=== PATIENT | female | born 1955 | race Caucasian/White ===

== ENCOUNTER 2023-08-27 14:02 | Outpatient (REF) | payer MEDICARE, SELFPAY ==
[2023-08-27 17:32] LABS: ALT 30 U/L (14-59); AST 24 U/L (15-37); Albumin 3.8 g/dL (3.4-5.0); Alkaline Phosphatase 110 U/L (46-116); Anion Gap 4.9 mmol/L (3-11); BUN 18 mg/dL (7-18); Bilirubin, Total 0.3 mg/dL (0.2-1.0); CO2 29.1 mmol/L (21.0-32.0); CREATININE 0.7 mg/dL (0.55-1.02); Calcium 9.3 mg/dL (8.5-10.1); Calculated LDL 110 mg/dL (<100); Chloride 104 mmol/L (98-107); Cholesterol 215 mg/dL (<200); Estimated GFR 94.15 (mL/min/1.73m2); Glucose 115 mg/dL (74-106); HDL Cholesterol 99 mg/dL (40-60); Sodium 138 mmol/L (136-145); TSH (W/Ref FT4) 1.25 uIU/mL (0.36-3.74); Total Protein 7.5 g/dL (6.4-8.2); Triglyceride 34 mg/dL (<150)
== END 2023-08-27 14:03 | disposition home or self-care (01) ==
LOC: NCHCN 14:02
PROVIDERS: Visit Provider Family Medicine
DX: E78.00 Pure hypercholesterolemia, unspecified (principal); F41.8 Other specified anxiety disorders; R53.83 Other fatigue
CPT/HCPCS: 80053; 80061; 84443

== ENCOUNTER 2024-09-06 19:32 | Outpatient (REF) | payer MEDICARE, BC, SELFPAY ==
--- OUTSIDE RECORDS SUMMARY | 2024-09-06 19:35 | XMS_ITS | Encounter Summary ---
Author Organization [facility] Address [address] [place] [address] Care Team Providers Care Banquet Waiter/Waitress Name Role Phone Unavailable Primary Care Provider Unavailabl e Encounter Details Date Type Department Care Team (Late st Contact Info) Description 11/23/2007 Results Only [facility] - Maple conversion [address] [place] [address] Unknown, Provider, Social History Tobacco Use Types Packs/Day Years Used Date Smoking Tobacco: Never Assessed Sex and Gender Information Value Date Recorded Sex Assigned at Not on file Gender Identity Not on file Sexual Orientation Not on file documented as of this encounter Plan of Treatment Not on file documented as of this encounter Procedures Procedure Name Priority Date/Time Associated Diagnosis Comments FOLATE Routine 11/23/2007 14:07 EST VITAMIN B12 Routine 11/23/2007 14:07 EST documented in this encounter Results * FOLATE (11/23/2007 14:07 EST) Folate 17.7 ng/mL [facility] Comment: Deficient: ??Less than 3.4 ng/mL Indeterminate: ??3.4-5.4 ng/mL Normal: ??Greater than 5.4 ng/mL 11/23/2007 14:0 7 EST 11/23/2007 21:50 EST Provider Unknown CHEMISTRY & BLOOD GA S ORDERABLES [facility] [address] [place] [address] * VITAMIN B12 (11/23/2007 14:07 EST) Vitamin B-12 409 250 - 1100 pg/ml [facility] 11/23/2007 14:0 7 EST 11/23/2007 21:50 EST Provider Unknown MD CHEMISTRY & BLOOD GA S ORDERABLES Performing Organization Address City/State/[facility] Co de Phone Number [facility] [address] [place] [address] documented in this encounter Visit Diagnoses Not on filedocumented in this encounter
--- OUTSIDE RECORDS SUMMARY | 2024-09-06 19:35 | XMS_ITS | Encounter Summary ---
Author Organization [facility] Address [address] [place] [address] Care Team Providers Care Visitor Services Representative Name Role Phone Unknown, Provider Primary Care Provider Encounter Details Date Type Department Care Team (Late st Contact Info) Description 08/04/2011 Results Only [facility] - [facility] ([facility] [address] [place] [address] Johanna Leonard MD [facility] [address] [place], [place] [id number] Social History Tobacco Use Types Packs/Day Years Used Date Smoking Tobacco: Never Assessed Sex and Gender Information Value Date Recorded Sex Assigned at Not on file Gender Identity Not on file Sexual Orientation Not on file documented as of this encounter Plan of Treatment Not on file documented as of this encounter Procedures Procedure Name Priority Date/Time Associated Diagnosis Comments PAP TEST- RESULT ONLY Routine 08/04/2011 0:00 EDT documented in this encounter Results * PAP TEST- RESULT ONLY (08/04/2011 0:00 EDT) Pathology Report: CYTOPATHOLOGY REPORT ? Reports generated via electronic interface contain original data; ? however they are lacking the format of the original report. ? Caution should be taken when reading/interpreti ng unformatted reports. ? Name: ? NEGAR PEREZ ? Accession #: ? [id number] ? : ? 1955 (Age: 55) ??F ?Collect Date: ? 08/04/2011 ? Location: ? [facility] ? Receive Date: ? 08/05/2011 ? Provider: ?JOHANNA CODDAIRE MD ? Copy to: ? Specimen/Source: ?Pap Test, Cervix/Endocervix, ThinPrep Imaging System ? with manual evaluation ? Last Menstrual Period: ? Menstrual/Pregnanc y Status: ? Menopausal ? Treatment History: ? Endometrial biopsy: 3 uyears ? SPECIMEN ADEQUACY ? Satisfactory for Evaluation ? - transformation zone component absent ? GENERAL CATEGORIZATION ? Negative for Intraepithelial Lesion or Malignancy ? Document reviewed and electronically signed by: ? Gisselle Josie, [place](ASCP) ? Report Date: ??08/11/2011 11:36 ? End of Report ? [facility] 08/04/2011 08/05/2011 Johanna Leonard MD PATHOLOGY ORDERABLES Performing Organization Address City/State/[facility] Co de Phone Number [facility] [address] [place] [address] documented in this encounter Visit Diagnoses Not on filedocumented in this encounter Care Teams Visitor Services Representative Relationship Specialty Start Date End Date Unknown, Provider, PCP - General 08/04/11 documented as of this encounter
--- OUTSIDE RECORDS SUMMARY | 2024-09-06 19:35 | XMS_ITS | Encounter Summary ---
Author Organization [facility] Address [address] [place] [address] Care Team Providers Care Plastic Parts Designer Name Role Phone Unavailable Primary Care Provider Unavailabl e Encounter Details Date Type Department Care Team (Late st Contact Info) Description 03/27/2009 Orders Only [facility] Laboratory Services - [facility] ([facility]) [address] [place] [address] Mejia Barrios MD Social History Tobacco Use Types Packs/Day Years Used Date Smoking Tobacco: Never Assessed Sex and Gender Information Value Date Recorded Sex Assigned at Not on file Gender Identity Not on file Sexual Orientation Not on file documented as of this encounter Plan of Treatment Not on file documented as of this encounter Procedures Procedure Name Priority Date/Time Associated Diagnosis Comments CYTOPATHOLOGY Routine 03/27/2009 0:00 EDT documented in this encounter Results * CYTOPATHOLOGY (03/27/2009 0:00 EDT) Pathology Report: CYTOPATHOLOGY REPORT ? Reports generated via electronic interface contain original data; ? however they are lacking the format of the original report. ? Caution should be taken when reading/interpreti ng unformatted reports. ? Name: ? NEGAR MERCADO L ? Accession #: ? [id number] ? : ? 1955 (Age: 53) ??F ?Collect Date: ? 03/27/2009 ? Location: ? [facility] ? Receive Date: ? 03/28/2009 ? Provider: ?MEJIA J BOLIVAR MD ? Copy to: ?JOHANNA IRELANDDAKILEY MD ? Specimen/Source: ?Pap Test, Cervix/Endocervix, ThinPrep Imaging System ? with manual evaluation ? Last Menstrual Period: ? Menstrual/Pregnanc y Status: ? Post Menopausal ? Treatment History: ? Miscellaneous treatment: EMB 1/07 ? Other: ? HPVA - HPV testing requested if ASC-US on the current ThinPrep Pap test. ? SPECIMEN ADEQUACY ? Satisfactory for Evaluation ? - transformation zone component present ? GENERAL CATEGORIZATION ? Negative for Intraepithelial Lesion or Malignancy ? Document reviewed and electronically signed by: ? Lynan Italo, CT(ASCP) ? Report Date: ??03/29/2009 14:46 ? End of Report ? [facility] 03/27/2009 03/28/2009 Mejia Barrios MD PATHOLOGY ORDERABLES [facility] [address] [place] [address] documented in this encounter Visit Diagnoses Not on filedocumented in this encounter
--- OUTSIDE RECORDS SUMMARY | 2024-09-06 19:35 | XMS_ITS | Referral Summary ---
Author Organization [facility] Address [address] [place] [address] Care Team Providers Care Experimental Outboard Motors Mechanic Name Role Phone Unknown, Provider Primary Care Provider [phone] Social History Tobacco Use Types Packs/Day Years Used Date Smoking Tobacco: Never Assessed Sex and Gender Information Value Date Recorded Sex Assigned at Not on file Gender Identity Not on file Sexual Orientation Not on file Plan of Treatment Not on file Care Teams Experimental Outboard Motors Mechanic Relationship Specialty Start Date End Date Unknown, Provider, PCP - General 08/04/11
--- OUTSIDE RECORDS SUMMARY | 2024-09-06 19:35 | XMS_ITS | Clinical Summary ---
Author Organization [facility] Address [address] [place] [address] Care Team Providers Care Associate Professor Of Mathematics Name Role Phone Unknown, Provider Primary Care Provider [phone] Social History Tobacco Use Types Packs/Day Years Used Date Smoking Tobacco: Never Assessed Sex and Gender Information Value Date Recorded Sex Assigned at Not on file Gender Identity Not on file Sexual Orientation Not on file Plan of Treatment Health Maintenance Due Date Last Done Comments Hepatitis C Screen 1955 RSV Immunization ( o r 60+ Years) (1 - 1-dose 60+ series) 2014 Fall Risk Screening 2019 COVID-19 Vaccine (2022-24 season) 2023 Care Teams Associate Professor Of Mathematics Relationship Specialty Start Date End Date Unknown, Provider, PCP - General 08/04/11
--- OUTSIDE RECORDS SUMMARY | 2024-09-06 19:35 | XMS_ITS | Encounter Summary ---
Author Organization [facility] Address [address] [place] [address] Care Team Providers Care Reducing System Operator Name Role Phone Unknown, Provider Primary Care Provider Encounter Details Date Type Department Care Team (Late st Contact Info) Description 02/27/2020 Lab Requisition [facility] Pathology & Laboratory Medicine - [facility] [address] [place] [address] Unknown, ProviderMD Social History Tobacco Use Types Packs/Day Years Used Date Smoking Tobacco: Never Assessed Sex and Gender Information Value Date Recorded Sex Assigned at Not on file Gender Identity Not on file Sexual Orientation Not on file documented as of this encounter Plan of Treatment Not on file documented as of this encounter Procedures Procedure Name Priority Date/Time Associated Diagnosis Comments GIARDIA AND CRYPTOSPORIDIUM ANTIGENS Routine 02/27/2020 16:15 EDT documented in this encounter Results * GIARDIA AND CRYPTOSPORIDIUM ANTIGENS (02/27/2020 16:15 EDT) Giardia and Cryptosporidium Cryptosporidium Antigen Neg and Giardia Antigen Neg Cryptosporidium Antigen Neg and Giardia Antigen Neg 0 11:27 EDT [facility] Feces SPECIMEN FROM RECTUM / Unknown Stool Collect / Unknown 02/27/2020 16:15 EDT 02/27/2020 22:28 EDT Provider Unknown MICROBIOLOGY - GENER AL ORDERABLES [facility] [address] [place] [address] documented in this encounter Visit Diagnoses Not on filedocumented in this encounter Care Teams Reducing System Operator Relationship Specialty Start Date End Date Unknown, ProviderMD PCP - General 08/04/11 documented as of this encounter
--- OUTSIDE RECORDS SUMMARY | 2024-09-06 19:35 | XMS_ITS | Encounter Summary ---
Author Organization [facility] Address [address] [place] [address] Care Team Providers Care Painter Plate Name Role Phone Unknown, Provider Primary Care Provider [phone] Encounter Details Date Type Department Care Team (Late st Contact Info) Description 02/15/2013 Results Only [facility] Services - [facility] ([facility] [address] [place] [address] Mejia Lutz MD Social History Tobacco Use Types Packs/Day [...] Diagnosis Comments PAP TEST- RESULT ONLY Routine 02/15/2013 0:00 EDT documented in this encounter Results * PAP TEST- RESULT ONLY (02/15/2013 0:00 EDT) Pathology Report: CYTOPATHOLOGY REPORT Reports generated via electronic interface contain original data; however they are lacking the format of the original report. Caution should be taken when reading/interpreti ng unformatted reports. Name: ? NEGAR PEREZ ? Accession #: ? [id number] : ? 1955 (Age: 57) ??F ?Collect Date: ? 02/15/2013 Location: ? [facility] ? Receive Date: ? 02/16/2013 Provider: ?MEJIA LUTZ MD Copy to: ?JOHANNA RUCKER MD ? Specimen/Source: ?Pap Test, Cervix/Endocervix, ThinPrep Imaging System with manual evaluation Last Menstrual Period: ? Menstrual/Pregnanc y Status: ? Post Menopausal Other: ? Additional clinical information: EMB 11/22 ? SPECIMEN ADEQUACY ? Satisfactory for Evaluation - transformation zone component present GENERAL CATEGORIZATION ? Negative for Intraepithelial Lesion or Malignancy ? Document reviewed and electronically signed by: ? BROCK Connor(ASCP) ? Report Date: ??02/21/2013 11:31 End of Report [facility] 02/15/2013 02/16/2013 Mejia Lutz MD PATHOLOGY ORDERABLES Performing Organization Address City/State/[facility] Co de Phone Number [facility] [address] [place] [address] documented in this encounter Visit Diagnoses Not on filedocumented in this encounter Care Teams Painter Plate Relationship Specialty Start Date End Date Unknown, Provider, PCP - General 08/04/11 documented as of this encounter
--- OUTSIDE RECORDS SUMMARY | 2024-09-06 19:35 | XMS_ITS | Encounter Summary ---
Author Organization [facility] Address [address] [place] [address] Care Team Providers Care Wedding Consultant Name Role Phone Unknown, Provider Primary Care Provider [phone] Encounter Details Date Type Department Care Team (Late st Contact Info) Description 02/25/2018 Results Only [facility] [phone] Johanna Rucker MD [address] [id number] Social History Tobacco Use Types Packs/Day Years [...] Diagnosis Comments PAP TEST- RESULT ONLY Routine 02/25/2018 0:00 EDT documented in this encounter Results * PAP TEST- RESULT ONLY (02/25/2018 0:00 EDT) Pathology Report: CYTOPATHOLOGY REPORT Reports generated via electronic interface contain original data; however they are lacking the format of the original report. Caution should be taken when reading/interpreti ng unformatted reports. Name: ? NEGAR PEREZ ? Accession #: ? [id number] : ? 1955 (Age: 62) ??F ?Collect Date: ? 02/25/2018 Location: ? [facility] ? Receive Date: ? 03/01/2018 Provider: ?JOHANNA RUCKER MD Copy to: ? Specimen/Source: ?Pap Test, Endocervix, ThinPrep Imaging System with manual evaluation Last Menstrual Period: ? Menstrual/Pregnanc y Status: ? Menopausal ? SPECIMEN ADEQUACY ? Satisfactory for Evaluation - transformation zone component present GENERAL CATEGORIZATION ? Negative for Intraepithelial Lesion or Malignancy ? Document reviewed and electronically signed by: ? BROCK Calvin(ASCP) ? Report Date: ??03/09/2018 07:43 End of Report [facility] 02/25/2018 03/01/2018 Johanna Rucker MD PATHOLOGY ORDERABLES [facility] [address] [place] [address] documented in this encounter Visit Diagnoses Not on filedocumented in this encounter Care Teams Wedding Consultant Relationship Specialty Start Date End Date Unknown, Provider, PCP - General 08/04/11 documented as of this encounter
--- OUTSIDE RECORDS SUMMARY | 2024-09-06 19:35 | XMS_ITS | Encounter Summary ---
Author Organization [facility] Address [address] [place] [address] Care Team Providers Care Editing Clerk Name Role Phone Unknown, Provider Primary Care Provider Encounter Details Date Type Department Care Team (Late st Contact Info) Description 02/27/2020 Lab Requisition [facility] Pathology & Laboratory Medicine - [facility] [address] [place] [address] Unknown, Provider, Social History Tobacco Use Types Packs/Day Years Used Date Smoking Tobacco: Never Assessed Sex and Gender Information Value Date Recorded Sex Assigned at Not on file Gender Identity Not on file Sexual Orientation Not on file documented as of this encounter Plan of Treatment Not on file documented as of this encounter Procedures Procedure Name Priority Date/Time Associated Diagnosis Comments FECAL BACTERIAL PATHOGENS BY PCR Routine 02/27/2020 16:15 EDT documented in this encounter Results * FECAL BACTERIAL PATHOGENS BY PCR (02/27/2020 16:15 EDT) Salmonella PCR Negative Negative 02/28/2020 11:08 EDT [facility] Shigella/Enteroin vasive E. coli Negative Negative 02/28/2020 11:08 EDT [facility] HN LAB CAMPYLOBACTER PCR Negative Negative 02/28/2020 11:08 EDT [facility] Shiga Toxin PCR Negative Negative 0 11:08 EDT [facility] Feces SPECIMEN FROM RECTUM / Unknown Stool Collect / Unknown 02/27/2020 16:15 EDT 02/27/2020 22:28 EDT Provider Unknown MICROBIOLOGY - GENER AL ORDERABLES [facility] [address] [place] [address] documented in this encounter Visit Diagnoses Not on filedocumented in this encounter Care Teams Editing Clerk Relationship Specialty Start Date End Date Unknown, Provider, PCP - General 08/04/11 documented as of this encounter
--- OUTSIDE RECORDS SUMMARY | 2024-09-06 19:35 | XMS_ITS | Encounter Summary ---
Author Organization [facility] Address [address] [place] [address] Care Team Providers Care Reshipping Clerk Name Role Phone Unknown, Provider Primary Care Provider Encounter Details Date Type Department Care Team (Late st Contact Info) Description 05/26/2014 Results Only [facility] - [facility] [place] [address] [place] [address] [facility] [address] [place] [address] Social History Tobacco Use Types Packs/Day Years [...] Diagnosis Comments PAP TEST- RESULT ONLY Routine 05/26/2014 0:00 EDT documented in this encounter Results * PAP TEST- RESULT ONLY (05/26/2014 0:00 EDT) Pathology Report: CYTOPATHOLOGY REPORT Reports generated via electronic interface contain original data; however they are lacking the format of the original report. Caution should be taken when reading/interpreti ng unformatted reports. Name: ? NEGAR PEREZ ? Accession #: ? [id number] ? : ? 1955 (Age: 58) ??F ?Collect Date: ? 05/26/2014 ? Location: ? [facility] ? Receive Date: ? 05/29/2014 ? Provider: JOHANNA RUCKER MD Copy to: ? Final Report SPECIMEN ADEQUACY ? Satisfactory for Evaluation - transformation zone component present GENERAL CATEGORIZATION ? Negative for Intraepithelial Lesion or Malignancy ?? Menstrual/Pregnanc y Status: ??Menopausal Specimen/Source: ??Pap Test, Cervix/Endocervix, ThinPrep Imaging System with manual evaluation Document reviewed and electronically signed by: ? Kan Howard, BROCK(ASCP) ? Report ??Date: 06/05/2014 09:19 HPV with Pap Test ? Date Ordered: ? 06/05/2014 ? Status: ?? Signed Out ?Date Complete: ? 06/08/2014 ? By: ??System Interface ? Date Reported: ? 06/08/2014 ? Interpretation RESULT: Negative for HPV. No E6 or E7 mRNA is detected from HPV types 16,18,31,33,35, 39,45,51,52,56,58, 59,66, and 68 by drying tunnel operator mediated amplification. Comments Document reviewed and electronically signed by: ? System Interface ? Report date: 06/08/2014 By the signature above, the attending physician certifies that he/she has personally conducted a gross and/or microscopic examination of the described specimens and rendered or confirmed the above diagnosis. End of Report [facility] 05/26/2014 05/29/2014 Johanna Rucker MD PATHOLOGY ORDERABLES [facility] [address] [place] [address] documented in this encounter Visit Diagnoses Not on filedocumented in this encounter Care Teams Reshipping Clerk Relationship Specialty Start Date End Date Unknown, Provider, PCP - General 08/04/11 documented as of this encounter
--- OUTSIDE RECORDS SUMMARY | 2024-09-06 19:36 | XMS_ITS | Encounter Summary ---
Author Organization [facility] Address [address] [place] [address] Care Team Providers Care Dimension Stone Quarry Supervisor Name Role Phone Unavailable Primary Care Provider Unavailabl e Encounter Details Date Type Department Care Team (Late st Contact Info) Description 04/22/2007 Results Only [facility] - [facility] [address] [place] [address] Mejia Lutz MD Social History Tobacco Use [...] Priority Date/Time Associated Diagnosis Comments CYTOPATHOLOGY Routine 04/22/2007 0:00 EDT documented in this encounter Results * CYTOPATHOLOGY (04/22/2007 0:00 EDT) Pathology Report: CYTOPATHOLOGY REPORT Reports generated via electronic interface contain original data; however they are lacking the format of the original report. Caution should be taken when reading/interpreti ng unformatted reports. Name: ? NEGAR PEREZ ? Accession #: ? [id number] : ? 1955 (Age: 51) ??F ?Collect Date: ? 04/22/2007 Location: ? [facility] ? Receive Date: ? 04/23/2007 Provider: ?MEJIA LUTZ MD Copy to: ?JOHANNA RUCKER MD ? Specimen/Source: ?ThinPrep Pap Test, Cervix/Endocervix, processed on [employer] ThinPrep Imaging System, with manual evaluation Last Menstrual Period: ? 01/06/07 Menstrual/Pregnanc y Status: ? Menopausal: Sherie Treatment History: ? Endometrial biopsy: 11/22 Other: ? Additional clinical information: Endometrial cells. Rpt pap. HPVA - HPV testing requested if ASC-US on the current ThinPrep Pap test. ? SPECIMEN ADEQUACY ? Satisfactory for Evaluation - transformation zone component present GENERAL CATEGORIZATION ? Negative for Intraepithelial Lesion or Malignancy ? Document reviewed and electronically signed by: ? BROCK Pfeiffer(ASCP) ? Report Date: ??04/27/2007 15:23 End of Report [facility] 04/22/2007 04/23/2007 Mejia Lutz MD PATHOLOGY ORDERABLES [facility] [address] [place] [address] documented in this encounter Visit Diagnoses Not on filedocumented in this encounter
--- OUTSIDE RECORDS SUMMARY | 2024-09-06 19:36 | XMS_ITS | Encounter Summary ---
Author Organization [facility] Address [address] [place] [address] Care Team Providers Care Whistle Punk Name Role Phone Unavailable Primary Care Provider Unavailabl e Encounter Details Date Type Department Care Team (Late st Contact Info) Description 11/03/2006 Results Only [facility] [address] [place] [address] Johanna Rucker MD [address] [id number] Social History Tobacco Use Types Packs/Day Years Used Date Smoking Tobacco: Never Assessed Sex and Gender Information Value Date Recorded Sex Assigned at Not on file Gender Identity Not on file Sexual Orientation Not on file documented as of this encounter Plan of Treatment Not on file documented as of this encounter Procedures Procedure Name Priority Date/Time Associated Diagnosis Comments CYTOPATHOLOGY Routine 11/03/2006 0:00 EST documented in this encounter Results * CYTOPATHOLOGY (11/03/2006 0:00 EST) Pathology Report: CYTOPATHOLOGY REPORT Reports generated via electronic interface contain original data; however they are lacking the format of the original report. Caution should be taken when reading/interpreti ng unformatted reports. Name: ? NEGAR PEREZ ? Accession #: ? [id number] : ? 1955 (Age: 51) ??F ?Collect Date: ? 11/03/2006 Location: ? [facility] ? Receive Date: ? 11/04/2006 Provider: ?JOHANNA RUCKER MD Copy to: ? Specimen/Source: ?ThinPrep Pap Test, Source Not Provided, processed on [employer] ThinPrep Imaging System, with manual evaluation Last Menstrual Period: ? Other: ? HPVA - HPV testing requested if ASC-US on the current ThinPrep Pap test.: R/O cancer ? SPECIMEN ADEQUACY ? Satisfactory for Evaluation - transformation zone component present GENERAL CATEGORIZATION ? Other, see interpretation INTERPRETATION ? Endometrial cells present in a woman equal to or greater than age 40. Negative for Intraepithelial Lesion or Malignancy. EDUCATIONAL NOTES/RECOMMENDATI ONS ? Benign appearing endometrial cells on Pap tests are usually a normal finding in women with regular menstrual cycles, especially if the Pap test was collected during the first half of the menstrual cycle. There is data showing that endometrial cells on Pap tests may be associated with endometrial/uterin e abnormalities in post menopausal women or in perimenopausal women with abnormal bleeding. There is limited data on the significance of benign endometrial cells in post menopausal women on HRT. ??Clinical correlation is recommended. Note: ??The Pap test is not an accurate test for the screening of endometrial lesions and should not be used as a follow up in patients with clinical suspicion of endometrial pathology. ? Document reviewed and electronically signed by: ? Stefan Gresham MD ? Report Date: ??11/13/2006 15:42 End of Report [facility] 11/03/2006 11/04/2006 Johanna Rucker MD PATHOLOGY ORDERABLES [facility] [address] [place] [address] documented in this encounter Visit Diagnoses Not on filedocumented in this encounter
--- OUTSIDE RECORDS SUMMARY | 2024-09-06 19:36 | XMS_ITS | Encounter Summary ---
Author Organization [facility] Address [address] [place] [address] Care Team Providers Care Railroad Car Inspector Name Role Phone Unavailable Primary Care Provider Unavailabl e Encounter Details Date Type Department Care Team (Late st Contact Info) Description 01/22/2005 Results Only [facility] - [facility] conversion [address] [place] [address] Mejia Lutz MD Social History Tobacco Use [...] Priority Date/Time Associated Diagnosis Comments CYTOPATHOLOGY Routine 01/22/2005 0:00 EST documented in this encounter Results * CYTOPATHOLOGY (01/22/2005 0:00 EST) Pathology Report: CYTOPATHOLOGY REPORT Reports generated via electronic interface contain original data; however they are lacking the format of the original report. Caution should be taken when reading/interpreti ng unformatted reports. Name: ? NEGAR PEREZ ? Accession #: ? [id number] : ? 1955 (Age: 49) ??F ?Collect Date: ? 01/22/2005 Location: ? [facility] ? Receive Date: ? 01/23/2005 Provider: ?MEJIA LUTZ MD Copy to: ?JOHANNA RUCKER MD ? Specimen/Source: ?ThinPrep Pap Test, Cervix/Endocervix Last Menstrual Period: ? 01/06/05 Treatment History: ? Miscellaneous treatment: [place] ? 2000 Other: ? HPVA - HPV testing requested if ASC-US on the current ThinPrep Pap test. ? SPECIMEN ADEQUACY ? Satisfactory for Evaluation - transformation zone component present GENERAL CATEGORIZATION ? Negative for Intraepithelial Lesion or Malignancy ? Document reviewed and electronically signed by: ? BROCK Pfeiffer(ASCP) ? Report Date: ??01/27/2005 11:36 End of Report [facility] 01/22/2005 01/23/2005 Mejia Lutz MD PATHOLOGY ORDERABLES [facility] [address] [place] [address] documented in this encounter Visit Diagnoses Not on filedocumented in this encounter
--- OUTSIDE RECORDS SUMMARY | 2024-09-06 19:36 | XMS_ITS | Encounter Summary ---
Author Organization [facility] Address [address] [place] [address] Care Team Providers Care Spanish Interpreter Name Role Phone Unavailable Primary Care Provider Unavailabl e Encounter Details Date Type Department Care Team (Late st Contact Info) Description 12/21/2003 13:12 EST Hospital Encounter [facility] - Other [address] [place] [address] Johanna Rucker MD [address] [id number] Social History Tobacco Use Types Packs/Day Years Used Date Smoking Tobacco: Never Assessed Sex and Gender Information Value Date Recorded Sex Assigned at Not on file Gender Identity Not on file Sexual Orientation Not on file documented as of this encounter Plan of Treatment Not on file documented as of this encounter Procedures Procedure Name Priority Date/Time Associated Diagnosis Comments CYTOPATHOLOGY Routine 12/21/2003 0:00 EST documented in this encounter Results * CYTOPATHOLOGY (12/21/2003 0:00 EST) Pathology Report: CYTOPATHOLOGY REPORT Reports generated via electronic interface contain original data; however they are lacking the format of the original report. Caution should be taken when reading/interpreti ng unformatted reports. Name: ? NEGAR PEREZ ? Accession #: ? [id number] : ? 1955 (Age: 48) ??F ?Collect Date: ? 12/21/2003 Location: ? [facility] ? Receive Date: ? 12/22/2003 Provider: ?JOHANNA RUCKER MD Copy to: ? Specimen/Source: ?ThinPrep Pap Test, Cervix/Endocervix Last Menstrual Period: ? 11/26/03 Other: ? HPVA - HPV testing requested if ASC-US on the current ThinPrep Pap test. ? SPECIMEN ADEQUACY ? Satisfactory for Evaluation - transformation zone component absent GENERAL CATEGORIZATION ? Negative for Intraepithelial Lesion or Malignancy ? Document reviewed and electronically signed by: ? Marquita Puckett, BROCK(ASCP) ? Report Date: ??12/26/2003 13:09 End of Report [facility] 12/21/2003 12/22/2003 Johanna Rucker MD PATHOLOGY ORDERABLES [facility] [address] [place] [address] documented in this encounter Visit Diagnoses Not on filedocumented in this encounter
--- OUTSIDE RECORDS SUMMARY | 2024-09-06 19:36 | XMS_ITS | Encounter Summary ---
Author Organization [facility] Address [address] [place] [address] Care Team Providers Care Pediatric Cardiologist Name Role Phone Unavailable Primary Care Provider Unavailabl e Encounter Details Date Type Department Care Team (Late st Contact Info) Description 10/19/2007 Results Only [facility] - [facility] conversion [address] [place] [address] Mejia Lutz MD Social History Tobacco Use [...] Priority Date/Time Associated Diagnosis Comments CYTOPATHOLOGY Routine 10/19/2007 0:00 EST documented in this encounter Results * CYTOPATHOLOGY (10/19/2007 0:00 EST) Pathology Report: CYTOPATHOLOGY REPORT Reports generated via electronic interface contain original data; however they are lacking the format of the original report. Caution should be taken when reading/interpreti ng unformatted reports. Name: ? NEGAR PEREZ ? Accession #: ? [id number] : ? 1955 (Age: 52) ??F ?Collect Date: ? 10/19/2007 Location: ? [facility] ? Receive Date: ? 10/21/2007 Provider: ?MEJIA LUTZ MD Copy to: ? Specimen/Source: ?ThinPrep Pap Test, Cervix/Endocervix, processed on [employer] ThinPrep Imaging System, with manual evaluation Last Menstrual Period: ? Treatment History: ? Endometrial biopsy: 11/22 Other: ? Additional clinical information: Perimenopausal HPVA - HPV testing requested if ASC-US on the current ThinPrep Pap test. ? SPECIMEN ADEQUACY ? Satisfactory for Evaluation - transformation zone component present GENERAL CATEGORIZATION ? Negative for Intraepithelial Lesion or Malignancy ? Document reviewed and electronically signed by: ? BROCK Connor(ASCP) ? Report Date: ??10/22/2007 13:41 End of Report [facility] 10/19/2007 10/21/2007 Mejia Lutz MD PATHOLOGY ORDERABLES [facility] [address] [place] [address] documented in this encounter Visit Diagnoses Not on filedocumented in this encounter
[2024-09-06 22:00] LABS: ALT 23 U/L (14-59); AST 28 U/L (15-37); Albumin 3.9 g/dL (3.4-5.0); Alkaline Phosphatase 104 U/L (46-116); Anion Gap 7.9 mmol/L (3-11); BUN 18 mg/dL (7-18); Bilirubin, Total 0.47 mg/dL (0.2-1.0); CO2 28.1 mmol/L (21.0-32.0); CREATININE 0.8 mg/dL (0.55-1.02); Calcium 9.1 mg/dL (8.5-10.1); Calculated LDL 90 mg/dL (<100); Chloride 107 mmol/L (98-107); Cholesterol 197 mg/dL (<200); Estimated GFR 79.71 (mL/min/1.73m2); Glucose 96 mg/dL (74-106); HDL Cholesterol 89 mg/dL (40-60); Potassium 4.1 mmol/L (3.5-5.1); Sodium 143 mmol/L (136-145); Total Protein 7.7 g/dL (6.4-8.2); Triglyceride 93 mg/dL (<150)
[2024-09-06 22:12] LABS: Hemoglobin A1C 5.7 % (<5.7)
== END 2024-09-06 19:33 | disposition home or self-care (01) ==
LOC: NCHCN 19:32
PROVIDERS: Visit Provider Family Medicine
DX: E78.1 Pure hyperglyceridemia (principal)
CPT/HCPCS: 80053; 80061; 83036